=== PATIENT | male | born 1955 | race Caucasian/White ===

== ENCOUNTER 2025-10-24 11:25 | Emergency (ER) | payer OTHER, MEDICAID ==
[~2025-10-24] VITALS: Ht 172.7 cm; Wt 68.0 kg
[2025-10-24 11:34] VITALS: O2SAT 97
[2025-10-24 12:22] LABS: BASOPHILS % 0.9 % (0.0-2.0); EOSINOPHILS % 0.1 % (0.0-5.0); HEMATOCRIT. 46.7 % (42.0-52.0); HEMOGLOBIN. 15.9 g/dL (14.0-18.0); LYMPHOCYTES % 10.9 % (20.0-50.0); MEAN PLATELET VOLUME 7.4 fl (7.4-10.4); MONOCYTES % 5.5 % (2.0-8.0); NEUTROPHILS % 82.6 % (40.0-76.0); PLATELET 173 x1000/uL (130-400); RED BLOOD CELL COUNT 5.16 mill/uL (4.7-6.1); RED CELL DISTRIBUTION WIDTH 13.9 % (11.6-14.6)
[2025-10-24 12:49] LABS: CREATININE 1.1 mg/dL (0.6-1.3)
[2025-10-24 12:50] LABS: UREA NITROGEN BLOOD 8 mg/dL (9-23)
[2025-10-24] MEDS ORDERED: AMLO10TA80 MT (14:12)
[2025-10-24 14:26] VITALS: BP 181/83; PULSE 72; RESP 18; TEMP 36.7; O2SAT 98
== END 2025-10-24 14:31 | disposition home or self-care (01) ==
LOC: ER 11:25
DX: I10 Essential (primary) hypertension (principal)
CPT/HCPCS: 36415; 80048; 85025; 93005; 99284